=== PATIENT | male | born 1965 | race Two or more races ===

== ENCOUNTER 2020-09-03 05:55 | Day surgery (SDC) | payer OTHER | END 2020-09-03 13:50 | disposition home or self-care (01) | LOC: CIR.AMB 05:55 | PROVIDERS: ATTEND Urology | DX: N47.1 Phimosis (principal); Z20.822 Contact with and (suspected) exposure to COVID-19 ==

== ENCOUNTER 2021-11-22 10:05 | Emergency (ER) | payer OTHER ==
[~2021-11-22] VITALS: Ht 175.3 cm; Wt 59.0 kg
== END 2021-11-22 10:57 | disposition home or self-care (01) ==
LOC: ER 10:05
DX: S61.012A Laceration without foreign body of left thumb without damage to nail, initial encounter (principal); W26.0XXA Contact with knife, initial encounter; Y93.89 Activity, other specified; Y92.89 Other specified places as the place of occurrence of the external cause

== ENCOUNTER 2024-05-04 10:16 | Outpatient (CLI) | payer OTHER ==
[2024-05-04 11:18] LABS: CREATININE SERUM 1.02 mg/dL (0.70-1.30)
== END 2024-05-04 10:21 | disposition home or self-care (01) ==
LOC: LAB 10:16
PROVIDERS: ATTEND Ophthalmology
DX: H53.2 Diplopia (principal); H50.05 Alternating esotropia; H44.23 Degenerative myopia, bilateral; H25.13 Age-related nuclear cataract, bilateral; Q14.3 Congenital malformation of choroid; H35.361 Drusen (degenerative) of macula, right eye; H04.123 Dry eye syndrome of bilateral lacrimal glands

== ENCOUNTER 2024-05-04 10:51 | Outpatient (CLI) | payer OTHER | END 2024-05-04 10:52 | disposition home or self-care (01) | LOC: MRI 10:51 | PROVIDERS: ATTEND Ophthalmology | DX: H53.2 Diplopia (principal); H50.05 Alternating esotropia; H44.23 Degenerative myopia, bilateral; H25.13 Age-related nuclear cataract, bilateral; Q14.3 Congenital malformation of choroid; H35.361 Drusen (degenerative) of macula, right eye; H04.123 Dry eye syndrome of bilateral lacrimal glands | CPT/HCPCS: 70553 ==